=== PATIENT | female | born 1955 | race Caucasian/White ===

== ENCOUNTER → 2017-09-05 | Outpatient (CLI) | payer BC, OTHER ==
--- NOTE | 2017-09-07 10:14 | MAM ---
EXAM DESCRIPTION: 3D Screening BILATERAL : Digital Mammography. CLINICAL HISTORY: 62 years Female SCREENING . No complaints. No family history of breast cancer. Postmenopausal. No HRT. COMPARISON: 2-D digital screening bilateral study 05/29/2015. Report from prior study not available. TECHNIQUE: Bilateral CC and MLO projection full-field images, 3-D tomosynthesis digital mammographic technique. Also bilateral synthesized CC/ MLO full-field images. CAD not utilized. FINDINGS: The breast parenchymal density pattern is: Scattered areas of fibroglandular density. No skin thickening or nipple retraction bilateral axillary lymph nodes. Lateral solitary microcalcifications. No focal, stellate mass or density, focal asymmetry , and no suspicious microcalcifications bilaterally. IMPRESSION: BI-RADS CATEGORY: 2 - BENIGN FINDINGS. FOLLOW UP: Routine digital bilateral screening, one year interval from August 2017. Written communication explaining the IMPRESSION and follow-up, will be mailed to the patient and referring health care provider. According to the [employer], yearly mammograms are recommended starting at age 40 and continuing as long as a woman is in good health. Any breast change noted on a breast self-exam should be reported promptly to the patient's healthcare provider. Breast MRI is recommended for women with an approximately 20-25% or greater lifetime risk of breast cancer, including women with a strong family history of breast or ovarian cancer and women who have been treated for Hodgkin's disease. A negative mammographic report should not delay tissue diagnosis in patients with significant clinical history or physical findings. Extremely dense breast tissue limits the sensitivity of digital mammography. Electronically signed by: Solomon Matthews MD 09/07/2017 10:12 AM PACKAGING MANAGER
== END ==
LOC: MAMMO 08:32
PROVIDERS: ATTEND Nurse Practitioner Family
DX: Z12.31 Encounter for screening mammogram for malignant neoplasm of breast (principal)

== ENCOUNTER → 2018-04-19 | Outpatient (CLI) | payer OTHER ==
--- NOTE | 2018-04-19 13:45 | RAD ---
EXAM DESCRIPTION: Knee,Left three x-ray views CLINICAL HISTORY: 62 years, Female, PAIN IN LEFT KNEE COMPARISON: None TECHNIQUE: Three views of the left knee FINDINGS: A frontal view is submitted. No fracture or dislocation. Bones appear mildly osteopenic. Degenerative narrowing of the medial compartment is noted with prominent medial and lateral joint line spurring. There is spurring of tibial spines. Question small well-corticated loose body in the lateral compartment 5.5 mm. A lateral view and a sunrise patellar view are submitted. Lateral view shows severe endstage degenerative osteoarthrosis with spurring of the inferior patella, patellofemoral joint space narrowing, anterior and posterior distal femoral spurring as well as large osteophyte of the anterior tibial surface. Rim calcified densities in the popliteal region could be articular loose bodies within a Martin's cyst. Question small suprapatellar joint effusion. [place] patellar view shows no dislocation of the patella. Prominent posterior patellar spurring. IMPRESSION: End-stage osteoarthrosis of the left knee. Electronically signed by: Jm García MD 04/19/2018 1:44 PM CDT
== END ==
LOC: YCFC.O 10:21
PROVIDERS: ATTEND Nurse Practitioner Family
DX: Z00.00 Encounter for general adult medical examination without abnormal findings (principal); E78.2 Mixed hyperlipidemia; E11.9 Type 2 diabetes mellitus without complications; I10 Essential (primary) hypertension; M17.12 Unilateral primary osteoarthritis, left knee; M25.562 Pain in left knee

== ENCOUNTER → 2018-05-07 | Outpatient (CLI) | payer OTHER ==
--- NOTE | 2018-05-07 08:34 | RAD ---
EXAM DESCRIPTION: Knee,Right Complete CLINICAL HISTORY: 62 years Female, KNEE PAIN TECHNIQUE: 4 views of the right knee were performed. COMPARISON: None available. FINDINGS: The visualized bones appear well mineralized. No acute fracture or dislocation. Small amount of suprapatellar joint effusion noted. The soft tissues appear grossly unremarkable. Severe tricompartmental osteoarthritic changes, with large osteophytosis and severe medial compartment joint space narrowing with [id number] appearance. IMPRESSION: 1. Severe tricompartment osteoarthritic changes of the right knee with severe medial compartment joint space narrowing, with [id number] appearance. Electronically signed by: Wilmer Lni MD 05/07/2018 8:33 AM CDT
--- NOTE | 2018-05-07 08:37 | RAD ---
EXAM DESCRIPTION: Pelvis CLINICAL HISTORY: 62 years Female, HIP PAIN COMPARISON: None. TECHNIQUE: AP radiograph of the pelvis was performed. FINDINGS: The pelvic ring appears grossly intact on this single AP radiograph. No acute fracture or dislocation. Bilateral sacroiliac joints demonstrate mild osteoarthritic changes. Mild bilateral hip joint osteoarthritis. The visualized lumbo-sacral spine demonstrates moderate degenerative changes. IMPRESSION: Single AP radiograph of the pelvis demonstrates grossly intact pelvic ring. Mild bilateral hip joint osteoarthritis. Electronically signed by: Wilmer Lin MD 05/07/2018 8:35 AM CDT
== END ==
LOC: RAD 07:48
PROVIDERS: ATTEND Orthopaedic Surgery
DX: Z01.818 Encounter for other preprocedural examination (principal); M17.11 Unilateral primary osteoarthritis, right knee; M16.0 Bilateral primary osteoarthritis of hip; M25.561 Pain in right knee; M25.551 Pain in right hip

== ENCOUNTER → 2018-05-09 | Outpatient (CLI) | payer OTHER ==
--- NOTE | 2018-05-09 08:51 | RAD ---
EXAM DESCRIPTION: Chest,2 x-ray Views CLINICAL HISTORY: PREOP COMPARISON: None TECHNIQUE: PA/lateral FINDINGS: There is no acute appearing cardiac or pulmonary abnormality. Heart size is normal with normal pulmonary vascularity. No pleural effusion or pneumothorax. Lungs are clear with no consolidating infiltrate. Lateral view shows intact sternum and spurring in the T-spine. IMPRESSION: No acute process is identified in the chest. Electronically signed by: Jm García MD 05/09/2018 8:49 AM CDT
== END ==
LOC: YCFC.O 08:21
PROVIDERS: ATTEND Nurse Practitioner Family
DX: Z01.818 Encounter for other preprocedural examination (principal)

== ENCOUNTER 2018-05-30 05:29 | Inpatient (IN) | payer OTHER ==
--- NOTE | 2018-05-28 11:07 | HP ---
CHIEF COMPLAINT: Left knee pain. HISTORY OF PRESENT ILLNESS: Ms. Copeland is a 62-year-old female with a history of severe knee pain that is getting progressively worse over several years. She has had no trauma related to this, denies any radiation of pain and denies any neurologic symptoms. She has pain on a daily basis which has been refractory to conservative measures. Because of her ongoing pain, she has requested operative intervention. After discussing the risks, benefits and alternatives to that, the patient has given informed consent. PAST SURGICAL HISTORY: 1. Kidney stone removal. 2. Cholecystectomy. 3. Bilateral knee arthroscopy. MEDICATIONS: 1. Diclofenac. 2. Glyburide. 3. Lisinopril. 4. Metformin. 5. Gabapentin. 6. Lovastatin. ALLERGIES: NO KNOWN DRUG ALLERGIES. CODE STATUS: Full code. IMMUNIZATIONS: Up to date. FAMILY HISTORY: None pertinent to today's complaint. SOCIAL HISTORY: The patient does not drink, smoke or use any illicit drugs. REVIEW OF SYSTEMS: Negative except as indicated in the History of Present Illness. PHYSICAL EXAMINATION: VITAL SIGNS: Blood pressure 176/103. Pulse 94. Height 5'4". Weight 224 pounds. MENTAL STATUS: The patient is awake, alert, and is able to give a good history and participate in the physical. The patient is oriented to person, place and time. SKIN: Normal tone and turgor. HEENT: Normocephalic, atraumatic. Pupils equal, round and reactive. Mucosal membranes are moist. NECK: Normal range of motion. No thyromegaly, no lymphadenopathy. CHEST: Normal respiratory excursion. CARDIAC: Regular rate and rhythm. No murmurs, rubs or gallops. MUSCULOSKELETAL: The bilateral upper extremities show full active range of motion. She has no pain or deformity. Strength is 5/5. The right lower extremity shows crepitus and pain with range of motion of the knee. She has full range of motion of the hip. The knee has no varus/valgus or anterior/ posterior laxity, but she has severe tenderness diffusely. The left knee shows full range of motion of the hip without significant pain. She has intact sensation and it is warm and well perfused. She has no varus/valgus or anterior /posterior laxity. She has crepitus throughout her range of motion with near full extension and flexion is to about 100 degrees this morning. IMAGING: X-rays show severe arthritis. ASSESSMENT: 1. Arthritis. PLAN: Because of her failure of conservative measures, she has requested operative intervention. We have discussed the risks, benefits, and alternatives to that and the patient has given informed consent. #[id number] [facility]
[2018-05-30] MEDS ORDERED: ceFAZolin SODIUM 1 GM VIAL ONE ×4 (05:58→19:52)
[2018-05-30] MEDS ORDERED: SODIUM CHL 0.9% 100ML MINI-BAG 100 ML IVPB ONE ×3 (05:58→19:51)
[2018-05-30] MEDS ORDERED: LACTATED RINGERS 1,000 ML ONE (05:58)
[2018-05-30] MEDS ORDERED: VANCOMYCIN HCL INJ 1,000 MG VIAL IVPB ONE ×3 (05:58→19:52)
[2018-05-30] MEDS ORDERED: SODIUM CHLORIDE 0.9% 100ML 100 ML IVPB ONE (05:59)
[2018-05-30] MEDS ORDERED: TRANEXAMIC ACID 1,000 MG/10 ML VIAL ONE (05:59)
[2018-05-30] MEDS ORDERED: SODIUM CHLORIDE 0.9% 250ML 250 ML ONE ×3 (05:59→19:51)
[2018-05-30] MEDS: TRANEXAMIC ACID 1,000 MG/10 ML VIAL ONE ×2 (06:25→06:40)
[2018-05-30] MEDS ORDERED: MIDAZOLAM INJ 2 MG/2 ML VIAL ONE ×2 (06:32→07:07)
[2018-05-30] MEDS ORDERED: MORPHINE SULF *EPIDURAL* 1 MG/ML VIAL ONE (06:32)
[2018-05-30] MEDS ORDERED: fentaNYL CITRATE INJ 50 MCG/ML AMP ONE (06:32)
[2018-05-30] MEDS ORDERED: ACETAMINOPHEN IV 1000MG 100 ML ONE (06:32)
[2018-05-30] MEDS ORDERED: SODIUM CHLORIDE 0.9% (FLUSH) 10 ML SYG IV PRN (07:18)
[2018-05-30] MEDS ORDERED: MORPHINE SULFATE INJ 10 MG/ML VIAL IM PRN (07:18)
[2018-05-30] MEDS ORDERED: ACETAMINOPHEN 500 MG TAB PO PRN (07:18)
[2018-05-30] MEDS ORDERED: MORPHINE SULFATE INJ 10 MG/ML VIAL IV PRN (07:18)
[2018-05-30] MEDS ORDERED: ALUMINUM & MAGNESIUM HYDROXIDE 30 ML UD PO PRN (07:18)
[2018-05-30] MEDS ORDERED: BENZOCAINE-MENTH LOZ (CEPACOL) 1 EA LOZ MT PRN (07:18)
[2018-05-30] MEDS ORDERED: DEX 5% W/NACL 0.45% 1000ML 1,000 ML IVS PRN (07:18)
[2018-05-30] MEDS ORDERED: MAGNESIUM HYDROXIDE 30 ML UD PO PRN (07:18)
[2018-05-30] MEDS ORDERED: PROMETHAZINE HCL INJ 12.5 MG in SODIUM CHLORIDE 0.9% 50ML 50 ML IVPB PRN (07:18)
[2018-05-30] MEDS ORDERED: ZOLPIDEM TARTRATE 5 MG TAB PO PRN (07:18)
[2018-05-30] MEDS ORDERED: TEMAZEPAM 15 MG CAP PO PRN (07:18)
[2018-05-30] MEDS ORDERED: ACETAMINOPHEN 325 MG TAB PO PRN (07:18)
[2018-05-30] MEDS ORDERED: BISACODYL SUPPOSITORY 10 MG PR PRN (07:18)
[2018-05-30] MEDS ORDERED: PROMETHAZINE HCL INJ 25 MG in SODIUM CHLORIDE 0.9% 50ML 50 ML IVPB PRN (07:18)
[2018-05-30] MEDS ORDERED: TRANEXAMIC ACID INJ 1,000 MG in SODIUM CHLORIDE 0.9% 100ML 100 ML IVPB ONE (07:18)
[2018-05-30] MEDS ORDERED: traMADol HCL 50 MG TAB PO PRN (07:18)
[2018-05-30] MEDS ORDERED: NALOXONE HCL INJ 0.4 MG/ML VIAL IV PRN (07:18)
[2018-05-30] MEDS ORDERED: MORPHINE PCA 1 MG/ML 100 ML BAG IVPB SCH (07:30)
[2018-05-30] MEDS: ceFAZolin SODIUM 1 GM VIAL ONE ×2 (08:07→08:58)
[2018-05-30] MEDS: VANCOMYCIN HCL INJ 1,000 MG VIAL IVPB ONE ×2 (08:07→08:58)
[2018-05-30] MEDS: BUPIVACAINE LIPOSOME 13.3 MG/ML VIAL INJ ONE ×2 (08:08→08:57)
[2018-05-30] MEDS: BUPIVACAINE 0.5% 30 ML VIAL INJ ONE ×2 (08:08→08:57)
[2018-05-30] MEDS ORDERED: BUPIVACAINE LIPOSOME 13.3 MG/ML VIAL INJ ONE (08:24)
[2018-05-30] MEDS ORDERED: ELECTROLYTE-A 1,000 ML IVS ONE (08:36)
[2018-05-30] MEDS ORDERED: LIDOCAINE 1% 10 ML VIAL INJ ONE (10:00)
[2018-05-30] MEDS ORDERED: DEXAMETHASONE INJ 10 MG/ML VIAL IV ONE (10:00)
[2018-05-30] MEDS ORDERED: METOCLOPRAMIDE HCL INJ 10 MG/2 ML VIAL IV ONE (10:00)
[2018-05-30] MEDS ORDERED: PROPOFOL 200 MG/20 ML VIAL IV ONE (10:00)
[2018-05-30] MEDS ORDERED: ePHEDrine SULF 50 MG/ML IV ONE (10:00)
[2018-05-30] MEDS ORDERED: raNITIdine HCL INJ 25 MG/ML VIAL IV ONE (10:00)
[2018-05-30] MEDS: ONDANSETRON INJ 4 MG/2 ML VIAL IV PRN (10:10)
[2018-05-30] MEDS ORDERED: SCOPOLAMINE PATCH 1.5MG 1 EA TD ONE (10:36)
[2018-05-30] MEDS: CELECOXIB 100 MG CAP PO SCH (12:17)
[2018-05-30] MEDS: IV SET AND CAP CHANGE INJ INJ SCH (12:18)
[2018-05-30] MEDS: MAGNESIUM OXIDE 400 MG TAB PO SCH (12:19)
[2018-05-30] MEDS: ceFAZolin SODIUM 2 GM in SODIUM CHL 0.9% 100ML MINI-BAG 100 ML IVPB SCH ×2 (12:37→20:27)
--- NOTE | 2018-05-30 13:03 | RAD ---
EXAM DESCRIPTION: Knee,Left 2 or More Views CLINICAL HISTORY: 62 yearsFemale, TKA COMPARISON: None. IMPRESSION: There are operative changes of a left total knee arthroplasty. Components appear in excellent alignment, with no complicating features. There is postoperative gas in the soft tissues. Electronically signed by: Esteban Baxter MD 05/30/2018 1:01 PM CDT
[2018-05-30] MEDS ORDERED: ceFAZolin SODIUM 2 GRAMS PREMI 2 GM in PREMIX BAG 1 BAG IVPB SCH (16:00)
--- NOTE | 2018-05-30 16:10 | PN ---
DATE: 05/30/18 SUBJECTIVE: She is doing well. She has no pain. OBJECTIVE: She is afebrile. Vital signs are stable. Dressing is clean, dry and intact. ASSESSMENT: 1. Status post total knee arthroplasty. PLAN: The plan at this point is to begin CPM today and she will begin weightbearing as tolerated tomorrow. #[id number] [facility]
--- NOTE | 2018-05-30 16:35 | OP ---
DATE OF PROCEDURE: 05/30/18 PREOPERATIVE DIAGNOSIS: 1. Osteoarthritis of the left knee. POSTOPERATIVE DIAGNOSIS: 1. Osteoarthritis of the left knee. PROCEDURE: 1. Left total knee arthroplasty. SURGEON: Joselo Uriostegui M.D. ALTERATION TAILOR APPRENTICE: Solomon Armando CST, SA-C ANESTHESIA: General anesthesia. COMPLICATIONS: None. FINDINGS: Severe arthritis with varus deformity. INDICATION FOR PROCEDURE: Ms. Copeland has a history of severe pain associated with arthritis. The arthritis has been refractory to conservative measures. Because of the refractory nature of it she has requested operative intervention. After discussing the risks, benefits, and alternatives to operative intervention, she has given informed consent for total knee arthroplasty. PROCEDURE: The patient was brought to the Operating Room and placed in supine position. General anesthesia was induced and the patient's leg was sterilely prepped and draped. Following prepping and draping, the distal femur was exposed and using an intramedullary guide, the distal femoral cut was made. The appropriate sized cutting block was measured, pinned into place, and the anterior, posterior, and chamfer cuts were made. The ACL was transected and the tibia was subluxed. Both the medial and lateral menisci were removed. An intramedullary guide was used to make the proximal tibial cut. The appropriate sized base plate was placed and a trial polyethylene was placed. The trial femur was placed, the knee was reduced, and the knee was taken through a range of motion. The knee was stable in anterior, posterior, varus and valgus stress. The patella tracked anatomically without evidence of subluxation or dislocation. After trialing, the trial components were removed and the bony surfaces were thoroughly irrigated with saline. Following irrigation, the surfaces were dried and the final components were cemented into place. The excess cement was removed and the remaining cement was allowed to cure. The knee was again taken through a range of motion to confirm stability. The wound was then irrigated with saline and closure was performed using PDS to approximate the arthrotomy followed by closure of the subcutaneous tissues with a combination of running and interrupted Monocryl sutures. Sterile dressing was placed. The patient was awoken from anesthesia and taken to Recovery. POSTOPERATIVE INSTRUCTIONS: She will be weightbearing as tolerated on postoperative day 1. COMPONENTS: [employer] triathlon knee, size 3 femur, size 3 tibia, 11 mm insert. #[id number] [facility]
[2018-05-30] MEDS ORDERED: DEXTROSE 50% 25 GM/50 ML SYG IV PRN (17:12)
[2018-05-30] MEDS ORDERED: GLUCAGON INJ 1 MG VIAL SUBCU PRN (17:12)
[2018-05-30] MEDS: VANCOMYCIN HCL INJ 1,000 MG in SODIUM CHLORIDE 0.9% 250ML 250 ML IVPB SCH (17:38)
--- NOTE | 2018-05-30 18:33 | CONS ---
DATE OF CONSULTATION: 05/30/18 SUPERVISING PHYSICIAN: Junior Cervantes M.D. CHIEF COMPLAINT: Left knee pain. HISTORY OF PRESENT ILLNESS: This is a 62 year-old female patient who has a history of severe knee pain that has progressively worsened over several years. There is no trauma related to the pain. She has tried conservative measures but there has been no relief of her pain. Due to the ongoing pain she has requested operative intervention per Dr. Joselo Uriostegui, orthopedic surgeon for a left total knee arthroplasty. She had no problems intraoperatively today. I am seeing her postoperatively in the Medical/Surgical floor of the hospital. Her only complaints postoperatively are that she has a vaginal yeast-like itching and she would like something for that. PAST MEDICAL HISTORY: 1. Diabetes mellitus type 2. 2. Hypertension. 3. Diabetic neuropathy. 4. Hyperlipidemia. PAST SURGICAL HISTORY: 1. Kidney stone removal. 2. Cholecystectomy. 3. Bilateral knee arthroscopy. HOME MEDICATIONS: 1. Diclofenac. 2. Glyburide. 3. Lisinopril. 4. Metformin. 5. Gabapentin. 6. Lovastatin. ALLERGIES: NO KNOWN DRUG ALLERGIES. CODE STATUS: FULL CODE. FAMILY HISTORY: Noncontributory. SOCIAL HISTORY: She denies any tobacco, ETOH or illicit drug use. REVIEW OF SYSTEMS: Negative except as per History of Present Illness. PHYSICAL EXAMINATION: VITAL SIGNS: She is afebrile, heart rate 79, blood pressure 140/84, respiratory rate 18, O2 sat 95% on room air. GENERAL: This is a 62 year-old female patient who is lying in her hospital bed. She is in no acute distress. HEENT: Normocephalic and atraumatic. Pupils are equal and reactive. Oropharynx is clear. NECK: Supple without mass. RESPIRATORY: Essentially clear to auscultation bilaterally. HEART: Regular rate and rhythm. GASTROINTESTINAL: Abdomen is soft, nondistended, non-tender. Bowel sounds are positive. EXTREMITIES: She has an Iceman in place to her left knee. Bilateral pedal pulses are palpable at +2. NEUROLOGIC: She is awake, alert and oriented times three. LABORATORY: Glucose 163. All other labs and films have been reviewed via the EMR. IMPRESSION: 1. Osteoarthritis of the left knee status post left total knee arthroplasty per Dr. Joselo Uriostegui, orthopedic surgeon. Postoperative day #0. 2. Diabetes mellitus type 2. 3. Hypertension, stable. 4. Diabetic neuropathy. 5. Hyperlipidemia, stable. PLAN: We will continue present supportive care. Orthopedic issues will be per Dr. Joselo Uriostegui, orthopedic surgeon. I have restarted her home medications with the exception of her Diclofenac. She will begin her physical therapy for strengthening and conditioning tomorrow. I have also started her on blood sugars after meals and at bedtime with sliding scale insulin coverage. I have also ordered some Monistat cream to be used at night in her vaginal area. We will continue to monitor her closely and follow as needed. Dr. Cervantes is the collaborating physician available for consultation. #[id number] [facility]
[2018-05-30] MEDS ORDERED: ENOXAPARIN SODIUM 30 MG/0.3 ML SYG SUBCU ONE (20:46)
[2018-05-30] MEDS ORDERED: NON-FORMULARY MEDICATION 1 EA MIS (Lovastatin [Lovastatin] 20 MG) PO SCH (21:00)
[2018-05-30] MEDS: INSULIN LISPRO 100 UNITS/ML PEN SUBCU SCH (21:43)
[2018-05-30] MEDS: GABAPENTIN 300 MG CAP PO SCH (21:45)
[2018-05-30] MEDS: DOCUSATE CALCIUM 240 MG CAP PO SCH (21:45)
[2018-05-30] MEDS: MICONAZOLE NITRATE 2 % 45 GM TUBE VAG SCH (21:45)
[2018-05-30] MEDS: ENOXAPARIN SODIUM 30 MG/0.3 ML SYG SUBCU SCH (22:43)
[2018-05-31] MEDS ORDERED: ceFAZolin SODIUM 1 GM VIAL ONE (03:28)
[2018-05-31] MEDS ORDERED: SODIUM CHL 0.9% 100ML MINI-BAG 100 ML IVPB ONE (03:28)
[2018-05-31] MEDS: ceFAZolin SODIUM 2 GM in SODIUM CHL 0.9% 100ML MINI-BAG 100 ML IVPB SCH (03:40)
[2018-05-31] MEDS: ONDANSETRON INJ 4 MG/2 ML VIAL IV PRN ×3 (04:15→21:56)
[2018-05-31] MEDS: VANCOMYCIN HCL INJ 1,000 MG in SODIUM CHLORIDE 0.9% 250ML 250 ML IVPB SCH (05:41)
[2018-05-31] MEDS ORDERED: SODIUM CHLORIDE 0.9% 1000ML 1,000 ML IVS PRN (07:48)
[2018-05-31] MEDS: CELECOXIB 100 MG CAP PO SCH (07:53)
[2018-05-31] MEDS: INSULIN LISPRO 100 UNITS/ML PEN SUBCU SCH ×4 (07:54→23:07)
[2018-05-31] MEDS: metFORMIN HCL 500 MG TAB PO SCH ×2 (09:47→17:02)
[2018-05-31] MEDS: GABAPENTIN 300 MG CAP PO SCH ×3 (09:49→20:52)
[2018-05-31] MEDS: MAGNESIUM OXIDE 400 MG TAB PO SCH (09:50)
[2018-05-31] MEDS: glyBURIDE 5 MG TAB PO SCH ×2 (09:50→17:02)
[2018-05-31] MEDS: LISINOPRIL 10 MG TAB PO SCH (09:50)
[2018-05-31] MEDS ORDERED: diphenhydrAMINE HCL 50 MG/ML VIAL IV PRN (10:30)
--- NOTE | 2018-05-31 11:00 | PN ---
SUPERVISING PHYSICIAN: Junior Cervantes MD DATE: 05/31/18 SUBJECTIVE: The patient is sitting up in a chair in a room. She has no complaints of shortness of breath, nausea, vomiting, diarrhea or chest pain. She feels like her physical therapy went well this morning. She does complain of some itching on her neck as well as her arms and has asked for some Benadryl cream. Otherwise, no complaints. OBJECTIVE: VITAL SIGNS: Afebrile. Heart rate 88. Blood pressure 147/71. Respiratory rate 18. O2 saturation 93% on 2 liters nasal cannula. RESPIRATORY: Essentially clear to auscultation bilaterally. CARDIAC: Regular rate and rhythm. GASTROINTESTINAL: Abdomen is soft, nondistended, nontender. Bowel sounds are positive. EXTREMITIES: Bilateral pedal pulses are palpable +2. Dressing to her left knee is dry and intact. Minimal swelling around the knee. No erythema. NEUROLOGIC: Awake, alert and oriented times three. LABORATORY: Hemoglobin 12.3, hematocrit 36. Blood sugars have run between 145 and 197. All other labs and films have been reviewed via the EMR. ASSESSMENT: 1. Osteoarthritis of the left knee status post left total knee arthroplasty per Dr. Joselo Uriostegui, orthopedic surgeon, postoperative day #1. 2. Diabetes mellitus, type 2, well controlled. 3. Hypertension, stable. 4. Diabetic neuropathy. 5. Hyperlipidemia, stable. PLAN: We will continue present supportive care. Orthopedic issues will be per Dr. Joselo Uriostegui, orthopedic surgeon. She will continue with her physical therapy for strengthening and conditioning. Hopefully on discharge she will go to [facility]. I have ordered her topical Benadryl for itching as well as some IV Benadryl. I have encouraged good pulmonary hygiene. We will continue to monitor the patient closely and follow as needed. Dr. Cervantes is the collaborating physician and available for consultation. #[id number] [facility]
[2018-05-31] MEDS: ENOXAPARIN SODIUM 30 MG/0.3 ML SYG SUBCU SCH ×2 (11:47→23:06)
[2018-05-31] MEDS: diphenhydrAMINE 30 GM TUBE TOP SCH ×2 (11:47→20:51)
--- NOTE | 2018-05-31 13:33 | PN ---
DATE: 05/31/18 SUBJECTIVE: Ms. Copeland is up to a chair, eating and is not having significant pain. It seems to be well controlled. OBJECTIVE: Afebrile. Vital signs are stable. Dressing is clean, dry and intact. ASSESSMENT: Status post total knee arthroplasty. PLAN: The plan is to continue with her weightbearing as tolerated. #[id number] [facility]
[2018-05-31] MEDS: CYCLOBENZAPRINE HCL 10 MG TAB PO PRN ×2 (15:16→23:06)
[2018-05-31] MEDS: MICONAZOLE NITRATE 2 % 45 GM TUBE VAG SCH (20:52)
[2018-05-31] MEDS: DOCUSATE CALCIUM 240 MG CAP PO SCH (20:52)
[2018-05-31] MEDS: SIMVASTATIN 10 MG TAB PO SCH (20:52)
[2018-05-31] MEDS: HYDROcodone 5MG/APAP 325MG 1 EA TAB PO PRN (22:10)
[2018-06-01] MEDS: HYDROcodone 5MG/APAP 325MG 1 EA TAB PO PRN ×4 (05:51→20:48)
[2018-06-01] MEDS: INSULIN LISPRO 100 UNITS/ML PEN SUBCU SCH ×4 (07:19→22:41)
[2018-06-01] MEDS: glyBURIDE 5 MG TAB PO SCH ×2 (07:37→17:16)
[2018-06-01] MEDS: CYCLOBENZAPRINE HCL 10 MG TAB PO PRN ×2 (07:38→20:48)
[2018-06-01] MEDS: CELECOXIB 100 MG CAP PO SCH (07:38)
[2018-06-01] MEDS: metFORMIN HCL 500 MG TAB PO SCH ×2 (07:38→17:16)
[2018-06-01] MEDS: diphenhydrAMINE 30 GM TUBE TOP SCH ×2 (08:46→20:42)
[2018-06-01] MEDS: MAGNESIUM OXIDE 400 MG TAB PO SCH (08:46)
[2018-06-01] MEDS: LISINOPRIL 10 MG TAB PO SCH (08:47)
[2018-06-01] MEDS: GABAPENTIN 300 MG CAP PO SCH ×3 (08:47→20:41)
[2018-06-01] MEDS: SODIUM CHLORIDE 0.9% (FLUSH) 10 ML SYG IV SCH ×2 (08:48→20:41)
[2018-06-01] MEDS: ENOXAPARIN SODIUM 30 MG/0.3 ML SYG SUBCU SCH ×2 (10:46→22:56)
--- NOTE | 2018-06-01 13:14 | PN ---
DATE: 06/01/18 SUBJECTIVE: Ms. Copeland is doing well. She is on her CPM. OBJECTIVE: Afebrile. Vital signs stable. Wound is clean. There are no signs or symptoms of infection. ASSESSMENT: Status post total knee arthroplasty. PLAN: The plan at this point is for her to continue with her physical therapy and will likely be discharged tomorrow. #[id number] [facility]
--- NOTE | 2018-06-01 13:35 | PN ---
SUPERVISING PHYSICIAN: Junior Cervantes MD DATE: 06/01/18 SUBJECTIVE: The patient is sitting in a chair, getting ready to eat lunch. She notes her pain has been controlled. She is no longer having any significant itching since using the Benadryl cream. Otherwise, there are no other complaints. OBJECTIVE: VITAL SIGNS: Afebrile. Temperature 98.2. Pulse 99. Blood pressure 158/84. Respiratory rate 18. Saturation 94% on room air at rest. I&Os show positive balance of 1100 with 1975 in, 875 out. Weight 99.1 kg. GENERAL: The patient is resting comfortably in no acute distress. She is alert. CHEST: Lungs clear to auscultation bilaterally. HEART: Regular rate and rhythm. ABDOMEN: Soft, nontender. Positive bowel sounds. EXTREMITIES: There is a surgical dressing overlying the left knee which is clean and dry. No signs of infection. There is some minimal erythema on the medial aspect. Distal pulses are strong. Capillary refill is brisk. NEUROLOGIC: Alert and oriented times three. LABORATORY: Blood sugar has been well controlled between 88 and 130. ASSESSMENT: 1. Postoperative day #2 status post left total knee arthroplasty for extensive arthritis having failed to respond to outpatient plan with surgery performed by Dr. Joselo Uriostegui, orthopedic surgeon. 2. Diabetes mellitus, type 2, well controlled. 3. Hypertension, stable. 4. Diabetic neuropathy. 5. Hyperlipidemia. PLAN: We will continue to follow the patient as she progresses through her physical therapy and strengthening efforts. On discharge, the [facility] with anticipation of discharging either tomorrow or Monday. We will continue to encourage good pulmonary hygiene. Until discharge, we will continue to monitor the patient closely and treat as needed. #[id number] [facility]
[2018-06-01] MEDS: SIMVASTATIN 10 MG TAB PO SCH (20:41)
[2018-06-01] MEDS: MICONAZOLE NITRATE 2 % 45 GM TUBE VAG SCH (20:41)
[2018-06-01] MEDS: DOCUSATE CALCIUM 240 MG CAP PO SCH (20:41)
[2018-06-02] MEDS: HYDROcodone 5MG/APAP 325MG 1 EA TAB PO PRN ×5 (02:13→20:20)
[2018-06-02] MEDS: CYCLOBENZAPRINE HCL 10 MG TAB PO PRN ×2 (04:44→15:53)
[2018-06-02] MEDS: IV SET AND CAP CHANGE INJ INJ SCH (07:30)
[2018-06-02] MEDS: INSULIN LISPRO 100 UNITS/ML PEN SUBCU SCH ×4 (07:38→21:00)
[2018-06-02] MEDS: CELECOXIB 100 MG CAP PO SCH (08:07)
[2018-06-02] MEDS: glyBURIDE 5 MG TAB PO SCH ×2 (08:07→17:20)
[2018-06-02] MEDS: metFORMIN HCL 500 MG TAB PO SCH ×2 (08:07→17:20)
[2018-06-02] MEDS: GABAPENTIN 300 MG CAP PO SCH ×3 (09:58→20:21)
[2018-06-02] MEDS: MAGNESIUM OXIDE 400 MG TAB PO SCH (09:58)
[2018-06-02] MEDS: SODIUM CHLORIDE 0.9% (FLUSH) 10 ML SYG IV SCH ×2 (09:58→22:37)
[2018-06-02] MEDS: LISINOPRIL 10 MG TAB PO SCH (09:58)
[2018-06-02] MEDS: diphenhydrAMINE 30 GM TUBE TOP SCH ×2 (10:00→20:19)
[2018-06-02] MEDS: ENOXAPARIN SODIUM 30 MG/0.3 ML SYG SUBCU SCH ×2 (11:50→23:04)
--- NOTE | 2018-06-02 14:58 | PN ---
DATE: 06/02/18 SUPERVISING PHYSICIAN: Junior Cervantes M.D. SUBJECTIVE: The patient is working with Physical Therapy. She has good pain control. She is doing well with physical therapy but feels like she is not quite strong enough and safe enough to discharge, and is wanting to continue with physical therapy for another 24 hours. OBJECTIVE: VITAL SIGNS: She remains afebrile, temperature 98.6, pulse 106, blood pressure showing some elevation at 178/92, respirations 18, satting 93% on room air. I's and O's show a positive balance of 1100 with 1975 in, 875 out. She has had 1 bowel movement. Weight is 99.1 kg. GENERAL: The patient is very pleasant. She appears to be in no distress, working with Physical Therapy. CHEST: Lungs are clear to auscultation. HEART: Regular rate and rhythm. ABDOMEN: Soft, non-tender. Positive bowel sounds. EXTREMITIES: Surgical dressing remains in place over the left knee. It is clean and dry. Pulses distally are strong. Capillary refill is brisk. NEUROLOGIC: She is alert and oriented times three. LABORATORY: Blood sugars remain well controlled between 108 and 142. ASSESSMENT: 1. Postoperative day #2 status post left knee arthroplasty for extensive arthritis having failed to respond to outpatient treatment plan with surgery performed by Dr. Joselo Uriostegui, orthopedic surgeon. 2. Diabetes mellitus, type 2, well controlled. 3. Hypertension, stable. 4. Diabetic neuropathy. 5. Hyperlipidemia. PLAN: Will continue an additional day of physical therapy to ensure the patients is strong and safe to go home. On discharge, she plans to [facility] and hopefully be able to discharge Monday. We still continue to encourage pulmonary hygiene. Will monitor her blood pressures as they have been showing some elevation. Until discharge, will continue to monitor and treat as needed. #[id number] [facility]
[2018-06-02] MEDS: SIMVASTATIN 10 MG TAB PO SCH (20:20)
[2018-06-02] MEDS: DOCUSATE CALCIUM 240 MG CAP PO SCH (20:21)
[2018-06-02] MEDS: MICONAZOLE NITRATE 2 % 45 GM TUBE VAG SCH (21:00)
[2018-06-02] MEDS ORDERED: BISACODYL SUPPOSITORY 10 MG PR ONE (21:00)
[2018-06-02] MEDS ORDERED: MAGNESIUM HYDROXIDE 30 ML UD PO ONE (21:00)
[2018-06-03] MEDS: HYDROcodone 5MG/APAP 325MG 1 EA TAB PO PRN ×2 (00:54→05:18)
[2018-06-03] MEDS: glyBURIDE 5 MG TAB PO SCH (07:48)
[2018-06-03] MEDS: CELECOXIB 100 MG CAP PO SCH (07:48)
[2018-06-03] MEDS: metFORMIN HCL 500 MG TAB PO SCH (07:48)
[2018-06-03] MEDS: LISINOPRIL 10 MG TAB PO SCH (08:45)
[2018-06-03] MEDS: MAGNESIUM OXIDE 400 MG TAB PO SCH (08:46)
[2018-06-03] MEDS: SODIUM CHLORIDE 0.9% (FLUSH) 10 ML SYG IV SCH (08:46)
[2018-06-03] MEDS: GABAPENTIN 300 MG CAP PO SCH (08:46)
[2018-06-03] MEDS: ENOXAPARIN SODIUM 30 MG/0.3 ML SYG SUBCU SCH (11:53)
[2018-06-03] MEDS: diphenhydrAMINE 30 GM TUBE TOP SCH (14:45)
[2018-06-03] MEDS: INSULIN LISPRO 100 UNITS/ML PEN SUBCU SCH (14:46)
[2018-06-03 16:09] VITALS: BP 128/82; TEMP 98.1; O2SAT 98
--- NOTE | 2018-06-03 21:10 | DS ---
SUPERVISING PHYSICIAN: Junior Cervantes M.D. ADMISSION DIAGNOSIS: 1. Osteoarthritis of the left knee having failed to respond to outpatient treatment measures requiring elective left total knee arthroplasty that was performed by Dr. Joselo Uriostegui. 2. Diabetes mellitus type 2. 3. Hypertension, stable. 4. Diabetic neuropathies. 5. Hyperlipidemia. DISCHARGE DIAGNOSIS: 1. Postoperative day #3 for elective total left knee arthroplasty due to extensive arthritis and having failed to respond to outpatient measures for treatment with surgery performed by orthopedic surgeon, Dr. Joselo Uriostegui. 2. Diabetes mellitus, type 2, showing to be controlled. 3. Hypertension, stable. 4. Diabetic neuropathy. 5. Hyperlipidemia. REASON FOR HOSPITALIZATION: Ms. Copeland is a 62 year-old female patient that was admitted on 05/30/18 for elective total left knee arthroplasty. She has a longstanding history of severe knee pain that had worsened over several years. She denied any trauma related to the pain. She had tried multiple efforts at conservative treatment measures but had failed to receive any relief. Due to the ongoing pain, she requested operative intervention. The patient was seen postoperatively. She had no complications intraoperatively and she was in stable condition at time of admission. She did have a vaginal yeast-like itching that was treated with Monistat at that time. LABORATORY: Postoperative H&H 12.3 and 36.0 respectively. Blood sugars were between 99 and 146. No additional radiographic studies. CONSULTATION: Hospitalist services. Please see that note for full details. PROCEDURES: Total left knee arthroplasty performed by Dr. Joselo Uriostegui. Please see his Operative Notes for full details. HOSPITAL COURSE: Ms. Copeland was admitted on 05/30/18 for elective total left knee arthroplasty. She had no intraoperative complications and was followed postoperatively. She progressed well with her physical therapy and was felt on the day of discharge able to continue [facility]. Multiple attempts had been made to secure home health for the patient, but her insurance would not allow home health coverage. PHYSICAL EXAMINATION: GENERAL: The patient was seen and examined. VITAL SIGNS: On discharge, temperature 98.0, pulse 88, blood pressure 126/74, respirations 16, satting 89% on room air. CHEST: Lungs were clear to auscultation. HEART: Regular rate and rhythm. ABDOMEN: Soft, non-tender. Positive bowel sounds. EXTREMITIES: Left knee had a dressing in place that was clean and dry with no signs of infection. Distally pulses were strong, capillary refill is brisk. NEUROLOGIC: She is alert and oriented times three. PLAN: Ms. Copeland was discharged on 06/03/18 with instructions to followup with Dr. Uriostegui as scheduled. She was to continue with physical therapy rehabilitation efforts [facility] the [facility] and to call the center on Monday at 9:00 to schedule followup appointment. Wound care was as per Dr. Uriostegui's wound care management which was provided in printed form. She could shower but no tub baths. Activity is to increase as tolerated per Physical Therapy and to utilize a walker. Diet was diabetic diet as tolerated. Medications at discharge included: 1. [place] 5/325, prescription written by Dr. Uriostegui. 2. Flexeril 10 mg every 8 hours as needed for muscle spasms. 3. Continued Monistat cream for vaginal infection to completion. 4. Xarelto 10 mg daily, #8. No refills. All other medications prior to admission were continued. DISPOSITION: The patient was discharged home under the care of family members. Condition on discharge was stable and improved. #[id number] [facility]
== END 2018-06-03 14:00 | disposition home or self-care (01) | DRG 470 ==
LOC: AMB 05:29 → MS 11:25
PROVIDERS: ADMIT Orthopaedic Surgery; ATTEND Nurse Practitioner Family
PROC: 0SRD0J9 Replacement of Left Knee Joint with Synthetic Substitute, Cemented, Open Approach (ICD-10-PCS; principal; 2018-05-30 07:20)
DX: M17.12 Unilateral primary osteoarthritis, left knee (principal); Z87.442 Personal history of urinary calculi; E11.40 Type 2 diabetes mellitus with diabetic neuropathy, unspecified; I10 Essential (primary) hypertension; E78.5 Hyperlipidemia, unspecified

== ENCOUNTER → 2018-08-27 | Outpatient (CLI) | payer OTHER | LOC: YCFC.O 11:28 | PROVIDERS: ATTEND Nurse Practitioner Family | DX: Z01.818 Encounter for other preprocedural examination (principal) ==

== ENCOUNTER → 2018-08-28 | Outpatient (CLI) | payer OTHER ==
--- NOTE | 2018-08-28 08:36 | RAD ---
EXAM DESCRIPTION: Chest,2 Views CLINICAL HISTORY: 63 years Female, PREOP COMPARISON: Radiographs of the chest dated 05/09/2018. TECHNIQUE: PA and lateral radiographs of the chest were obtained. FINDINGS: Trachea is midline.The cardiomediastinal silhouette is normal in size. The pulmonary vasculature is within normal limits.The lungs are clear with no acute consolidation.No evidence of pleural effusions.No evidence of pneumothorax. IMPRESSION: No acute cardiopulmonary process. Electronically signed by: Holly Parry MD 08/28/2018 8:35 AM [facility]
== END ==
LOC: RAD 07:14
PROVIDERS: ATTEND Nurse Practitioner Family
DX: Z01.818 Encounter for other preprocedural examination (principal)

== ENCOUNTER 2018-09-26 05:32 | Inpatient (IN) | payer OTHER ==
--- NOTE | 2018-09-21 08:41 | HP ---
CHIEF COMPLAINT: Right knee pain. HISTORY OF PRESENT ILLNESS: Ms. Copeland is a 63-year-old female with a history of severe knee pain. She has had left total knee arthroplasty and has successfully recovered from that. She is requesting right total knee arthroplasty secondary to failure of conservative measures. After discussing the risks, benefits and alternatives to that, she has given informed consent. PAST SURGICAL HISTORY: 1. Kidney stone removal. 2. Cholecystectomy. 3. Bilateral knee arthroscopy. 4. Total knee arthroplasty. MEDICATIONS: 1. Diclofenac. 2. Glyburide. 3. Lisinopril. 4. Metformin. 5. Gabapentin. 6. Lovastatin. ALLERGIES: NO KNOWN DRUG ALLERGIES. FAMILY HISTORY: None pertinent to today's complaint. SOCIAL HISTORY: The patient does not drink, smoke or use any illicit drugs. REVIEW OF SYSTEMS: Negative except as indicated in the History of Present Illness. PHYSICAL EXAMINATION: VITAL SIGNS: Blood pressure 165/99. Pulse 85. Height 5'4". Weight 212 pounds. MENTAL STATUS: The patient is awake, alert, and is able to give a good history and participate in the physical. The patient is oriented to person, place and time. SKIN: Normal tone and turgor. HEENT: Normocephalic, atraumatic. Pupils equal, round and reactive. Mucosal membranes are moist. NECK: Normal range of motion. No thyromegaly, no lymphadenopathy. CHEST: Normal respiratory excursion. CARDIAC: Regular rate and rhythm. No murmurs, rubs or gallops. MUSCULOSKELETAL: She is very tender to palpation diffusely about the knee. She has intact sensation throughout. She does have slight varus overall malalignment. She has no AP laxity, but a little bit of laxity in varus testing. She has pain with patellar mobilization. Bilateral upper extremities show full active range of motion without pain. She has intact sensation in the extremities and they are warm and well perfused. She has full extension to flexion of about 105 degrees today. She has crepitus throughout the entire range of motion. She has left knee with a well-healed wound anteriorly. She has intact sensation. She has full extension and no significant discomfort with palpation. There is no malalignment or laxity. Both hips show full range of motion without pain. IMAGING: X-rays show severe arthritis and varus deformity of the knee. ASSESSMENT: 1. Arthritis. PLAN: The plan at this point is for total knee arthroplasty. We have discussed the risks, benefits, and alternatives to that and the patient has given informed consent. [facility][id number] [facility]
[2018-09-26] MEDS ORDERED: TRANEXAMIC ACID 1,000 MG/10 ML VIAL ONE ×2 (05:53→06:04)
[2018-09-26] MEDS ORDERED: VANCOMYCIN HCL INJ 1,000 MG VIAL IVPB ONE ×2 (05:53→16:21)
[2018-09-26] MEDS ORDERED: SODIUM CHL 0.9% 100ML MINI-BAG 100 ML IVPB ONE (05:53)
[2018-09-26] MEDS ORDERED: LACTATED RINGERS 1,000 ML ONE (05:53)
[2018-09-26] MEDS ORDERED: ceFAZolin SODIUM 1 GM VIAL ONE ×2 (05:53→06:26)
[2018-09-26] MEDS ORDERED: SODIUM CHLORIDE 0.9% 250ML 250 ML ONE ×2 (05:54→16:20)
[2018-09-26] MEDS ORDERED: SODIUM CHLORIDE 0.9% 100ML 100 ML IVPB ONE (05:54)
[2018-09-26] MEDS ORDERED: BUPIVACAINE 0.5% 30 ML VIAL INJ ONE (06:26)
[2018-09-26] MEDS ORDERED: MORPHINE SULFATE *EPIDURAL* 0.5 MG/ML VIAL ONE (06:28)
[2018-09-26] MEDS ORDERED: fentaNYL CITRATE INJ 50 MCG/ML AMP ONE (06:28)
[2018-09-26] MEDS ORDERED: MIDAZOLAM INJ 5 MG/5 ML VIAL ONE (06:28)
[2018-09-26] MEDS ORDERED: SCOPOLAMINE PATCH 1.5MG 1 EA TD ONE (06:37)
[2018-09-26] MEDS ORDERED: METOCLOPRAMIDE HCL INJ 10 MG/2 ML VIAL ONE (07:00)
[2018-09-26] MEDS ORDERED: DEXAMETHASONE INJ 10 MG/ML VIAL ONE (07:00)
[2018-09-26] MEDS ORDERED: raNITIdine HCL INJ 25 MG/ML VIAL ONE (07:00)
[2018-09-26] MEDS ORDERED: LIDOCAINE 1% 10 ML VIAL INJ ONE (07:00)
[2018-09-26] MEDS ORDERED: ePHEDrine SULF 50 MG/ML ONE (07:00)
[2018-09-26] MEDS ORDERED: PROPOFOL 200 MG/20 ML VIAL IV ONE (07:00)
[2018-09-26] MEDS ORDERED: ACETAMINOPHEN IV 1000MG 100 ML ONE (07:32)
[2018-09-26] MEDS: ceFAZolin SODIUM 1 GM VIAL ONE ×2 (08:09→08:53)
[2018-09-26] MEDS: VANCOMYCIN HCL INJ 1,000 MG VIAL IVPB ONE ×2 (08:09→08:53)
[2018-09-26] MEDS: BUPIVACAINE 0.25% W/EPI 50 ML VIAL INJ ONE ×2 (08:09→08:53)
[2018-09-26] MEDS ORDERED: CYCLOBENZAPRINE HCL 10 MG TAB PO PRN (09:08)
[2018-09-26] MEDS ORDERED: ALUMINUM & MAGNESIUM HYDROXIDE 30 ML UD PO PRN (09:08)
[2018-09-26] MEDS ORDERED: ZOLPIDEM TARTRATE 5 MG TAB PO PRN (09:08)
[2018-09-26] MEDS ORDERED: BENZOCAINE-MENTH LOZ (CEPACOL) 1 EA LOZ MT PRN (09:08)
[2018-09-26] MEDS ORDERED: ONDANSETRON INJ 4 MG/2 ML VIAL IV PRN (09:08)
[2018-09-26] MEDS ORDERED: BISACODYL SUPPOSITORY 10 MG PR PRN (09:08)
[2018-09-26] MEDS ORDERED: ACETAMINOPHEN 500 MG TAB PO PRN (09:08)
[2018-09-26] MEDS ORDERED: SODIUM CHLORIDE 0.9% (FLUSH) 10 ML SYG IV PRN (09:08)
[2018-09-26] MEDS ORDERED: MORPHINE SULFATE INJ 10 MG/ML VIAL IM PRN (09:08)
[2018-09-26] MEDS ORDERED: MORPHINE SULFATE INJ 10 MG/ML VIAL IV PRN (09:08)
[2018-09-26] MEDS ORDERED: TRANEXAMIC ACID INJ 1,000 MG in SODIUM CHLORIDE 0.9% 100ML 100 ML IVPB ONE (09:08)
[2018-09-26] MEDS ORDERED: ACETAMINOPHEN 325 MG TAB PO PRN (09:08)
[2018-09-26] MEDS ORDERED: DEX 5% W/NACL 0.45% 1000ML 1,000 ML IVS PRN (09:08)
[2018-09-26] MEDS ORDERED: PROMETHAZINE HCL INJ 12.5 MG in SODIUM CHLORIDE 0.9% 50ML 50 ML IVPB PRN (09:08)
[2018-09-26] MEDS ORDERED: NALOXONE HCL INJ 0.4 MG/ML VIAL IV PRN (09:08)
[2018-09-26] MEDS ORDERED: MAGNESIUM HYDROXIDE 30 ML UD PO PRN (09:08)
[2018-09-26] MEDS ORDERED: PROMETHAZINE HCL INJ 25 MG in SODIUM CHLORIDE 0.9% 50ML 50 ML IVPB PRN (09:08)
[2018-09-26] MEDS ORDERED: TEMAZEPAM 15 MG CAP PO PRN (09:08)
[2018-09-26] MEDS ORDERED: MORPHINE PCA 1 MG/ML 100 ML BAG IVPB SCH (09:30)
[2018-09-26] MEDS ORDERED: DEX 5% W/NACL 0.45% 1000ML 1,000 ML IVS ONE (10:46)
--- NOTE | 2018-09-26 11:10 | RAD ---
EXAM DESCRIPTION: Fluoroscopy Up to 1Hr CLINICAL HISTORY: 63 years Female, RIGHT TKA COMPARISON: None. TECHNIQUE: Fluoroscopy was used in the operative suite for right total knee replacement with a single image retained and a fluoroscopic time reported as one second. A fluoroscopic dose from the C-arm fluoroscopy unit utilized is not available. FINDINGS: Single view demonstrates total knee replacement with a radiopaque metallic femoral and tibial components well applied to the underlying bony matrix. Alignment appears satisfactory on the single AP view obtained IMPRESSION: Right total knee replacement. Electronically signed by: Junior Hermosillo MD 09/26/2018 11:07 AM [facility]
--- NOTE | 2018-09-26 11:13 | RAD ---
EXAM DESCRIPTION: Knee,Right 2 or More Views CLINICAL HISTORY: 63 years, Female, TKA COMPARISON: None TECHNIQUE: Two views right knee FINDINGS: Two views of the right knee demonstrate total knee replacement with metallic femoral and tibial components applied to the underlying bony matrix. This appears to represent a different prosthesis on that noted on the C-arm fluoroscopy. Surgical changes in the anterior soft tissues on the lateral view are evident. No evidence of patellar replacement is noted. IMPRESSION: 1. Right total knee replacement which appears to represent a different prosthesis than that noted on the C-arm fluoroscopic image. 2. Alignment of the prosthesis appears anatomic with what appears to be surgical changes in the anterior soft tissues. Electronically signed by: Junior Hermosillo MD 09/26/2018 11:10 AM INSURANCE CLAIMS CLERK
[2018-09-26] MEDS: diphenhydrAMINE HCL 50 MG/ML VIAL IV PRN ×2 (11:34→16:41)
[2018-09-26] MEDS ORDERED: diphenhydrAMINE HCL 50 MG/ML VIAL IV PRN (11:35)
[2018-09-26] MEDS ORDERED: DEXTROSE 50% 25 GM/50 ML SYG IV PRN (12:12)
[2018-09-26] MEDS ORDERED: GLUCAGON INJ 1 MG VIAL SUBCU PRN (12:12)
[2018-09-26] MEDS ORDERED: ceFAZolin SODIUM 2 GRAMS PREMI 50 ML IVPB ONE ×2 (16:21→23:48)
[2018-09-26] MEDS: metFORMIN HCL 500 MG TAB PO SCH (16:41)
[2018-09-26] MEDS: CELECOXIB 100 MG CAP PO SCH (16:42)
[2018-09-26] MEDS: GABAPENTIN 300 MG CAP PO SCH ×2 (16:42→20:59)
[2018-09-26] MEDS: ceFAZolin SODIUM 2 GRAMS PREMI 2 GM in PREMIX BAG 1 BAG IVPB SCH ×2 (16:42→23:52)
[2018-09-26] MEDS: INSULIN LISPRO 100 UNITS/ML PEN SUBCU SCH ×2 (17:37→20:59)
[2018-09-26] MEDS: VANCOMYCIN HCL INJ 1,000 MG in SODIUM CHLORIDE 0.9% 250ML 250 ML IVPB SCH (17:38)
[2018-09-26] MEDS ORDERED: diphenhydrAMINE HCL 50 MG/ML VIAL IV ONE (19:03)
[2018-09-26] MEDS: IV SET AND CAP CHANGE INJ INJ SCH (19:14)
--- NOTE | 2018-09-26 19:49 | CONS ---
DATE OF CONSULTATION: 09/26/18 SUPERVISING PHYSICIAN: Bjorn Harrison M.D. REASON FOR CONSULTATION: Right total knee arthroplasty. HISTORY OF PRESENT ILLNESS: This is a 63 year-old female patient who has a history of severe knee pain. She had a left total knee arthroplasty recently and successfully recovered from that. She is now requesting her right total knee arthroplasty secondary to failure of conservative measures. She was admitted this morning for surgery performed by Dr. Joselo Uriostegui, orthopedic surgeon. There were no problems intraoperatively and I am seeing the patient in consultation postoperatively on the Medical/Surgical floor. PAST MEDICAL HISTORY: 1. Osteoarthritis. 2. Diabetes mellitus type 2. 3. Hypertension. 4. Diabetic neuropathy. 5. Hyperlipidemia. PAST SURGICAL HISTORY: 1. Kidney stone removal. 2. Cholecystectomy. 3. Recent left total knee arthroplasty. 4. Bilateral knee arthroscoopy. OUTPATIENT MEDICATIONS: 1. Diclofenac. 2. Glyburide. 3. Lisinopril. 4. Metformin. 5. Gabapentin. 6. Lovastatin. ALLERGIES: NO KNOWN DRUG ALLERGIES. SOCIAL HISTORY: She denies any tobacco, ETOH or illicit drug use. REVIEW OF SYSTEMS: Negative except as per History of Present Illness. PHYSICAL EXAMINATION: VITAL SIGNS: Temperature 98.6, heart rate 80, blood pressure 138/83, respiratory rate 16, O2 sat 99% on 2 liters nasal cannula. GENERAL: This is a 63 year-old female patient who is lying in her hospital bed. She is in no acute distress. HEENT: Normocephalic and atraumatic. Pupils are equal and reactive. Oral mucous membranes are moist. Oropharynx is clear. NECK: Supple without mass. RESPIRATORY: Essentially clear to auscultation bilaterally. CHEST: There is equal rise and fall of the chest with inspiration and expiration. CARDIAC: Regular rate and rhythm. No murmurs appreciated. GASTROINTESTINAL: Abdomen is soft, nondistended, non-tender. Bowel sounds are positive. EXTREMITIES: Right knee is in the CPM machine. The dressing is secured with an Rojelio bandage and it is dry and intact. Bilateral pedal pulses are +2. SKIN: Warm and dry. NEUROLOGIC: She is awake, alert and oriented times three. LABORATORY: Blood glucoses have run between 120 and 177. All other labs and films have been reviewed via the EMR. IMPRESSION: 1. Osteoarthritis of bilateral knees status post right total knee arthroplasty performed by Dr. Joselo Uriostegui, orthopedic surgeon. Postoperative day #0. 2 Hypertension. 3. Diabetes mellitus type 2. 4. Hyperlipidemia. 5. Diabetic neuropathy. PLAN: Will restart home medications with the exception of Diclofenac and her Glyburide. Will hold on her Glyburide until she has been eating. She will begin her physical therapy for strengthening and conditioning tomorrow by our Physical Therapy department. Orthopedic issues will be per Dr. Joselo Uriostegui, orthopedic surgeon. I have also started her on blood sugar checks a.c. and h.s. with sliding scale NovoLog insulin as coverage. I have encouraged good pulmonary hygiene. We will continue to monitor closely and follow as needed. #[id number] [facility]
[2018-09-26] MEDS ORDERED: ENOXAPARIN SODIUM 30 MG/0.3 ML SYG SUBCU ONE (20:14)
[2018-09-26] MEDS: DOCUSATE CALCIUM 240 MG CAP PO SCH (20:59)
[2018-09-26] MEDS: SIMVASTATIN 10 MG TAB PO SCH (20:59)
[2018-09-26] MEDS: ENOXAPARIN SODIUM 30 MG/0.3 ML SYG SUBCU SCH (22:47)
[2018-09-27] MEDS ORDERED: VANCOMYCIN HCL INJ 1,000 MG VIAL IVPB ONE (04:19)
[2018-09-27] MEDS ORDERED: SODIUM CHLORIDE 0.9% 250ML 250 ML ONE (04:19)
[2018-09-27] MEDS: VANCOMYCIN HCL INJ 1,000 MG in SODIUM CHLORIDE 0.9% 250ML 250 ML IVPB SCH (05:45)
[2018-09-27] MEDS: HYDROcodone 5MG/APAP 325MG 1 EA TAB PO PRN ×3 (06:45→17:34)
[2018-09-27] MEDS: INSULIN LISPRO 100 UNITS/ML PEN SUBCU SCH ×4 (07:49→20:50)
[2018-09-27] MEDS ORDERED: ceFAZolin SODIUM 2 GRAMS PREMI 50 ML IVPB ONE (07:55)
--- NOTE | 2018-09-27 08:11 | PN ---
DATE: 09/27/18 SUBJECTIVE: Ms. Copeland is doing pretty well today and her pain is well controlled. OBJECTIVE: Afebrile. Vital signs stable. Dressing is clean, dry and intact. ASSESSMENT: Status post total knee arthroplasty. PLAN: The plan at this point is for her to begin weightbearing as tolerated today. #[id number] MTDD
--- NOTE | 2018-09-27 08:12 | PN ---
DATE: 09/26/18 POSTOPERATIVE CHECK SUBJECTIVE: Ms. Copeland is doing well. She has no current pain. OBJECTIVE: Afebrile. Vital signs stable. Dressing is clean, dry and intact. ASSESSMENT: Status post total knee arthroplasty. PLAN: She will begin weightbearing as tolerated on postoperative day 1. #[id number] [facility]TDD
[2018-09-27] MEDS: CELECOXIB 100 MG CAP PO SCH ×2 (08:24→16:16)
[2018-09-27] MEDS: metFORMIN HCL 500 MG TAB PO SCH ×2 (08:24→17:27)
[2018-09-27] MEDS: ceFAZolin SODIUM 2 GRAMS PREMI 2 GM in PREMIX BAG 1 BAG IVPB SCH (08:24)
[2018-09-27] MEDS: LISINOPRIL 10 MG TAB PO SCH ×2 (10:02→10:25)
[2018-09-27] MEDS: GABAPENTIN 300 MG CAP PO SCH ×3 (10:07→20:49)
[2018-09-27] MEDS: MAGNESIUM OXIDE 400 MG TAB PO SCH (10:07)
--- NOTE | 2018-09-27 12:00 | OP ---
DATE OF PROCEDURE: 09/26/18 PREOPERATIVE DIAGNOSIS: 1. Osteoarthritis of the knee. POSTOPERATIVE DIAGNOSIS: 1. Osteoarthritis of the knee. PROCEDURE: 1. Total knee arthroplasty. SURGEON: Joselo Uriostegui MD. NCA CERTIFIED CONCIERGE: Solomon Armando CST, SA-C. ANESTHESIA: General anesthesia. COMPLICATIONS: None. FINDINGS: Severe arthritis of the knee. INDICATION: Ms. Copeland has a long history of severe and worsening knee pain. Because of her ongoing symptoms, she has requested operative intervention. After discussing the risks, benefits and alternatives to that, the patient has given informed consent for total knee arthroplasty. PROCEDURE: The patient was brought to the Operating Room and placed in supine position. General anesthesia was induced and the patient's leg was sterilely prepped and draped. Following prepping and draping, the distal femur was exposed and using an intramedullary guide, the distal femoral cut was made. The appropriate sized cutting block was measured, pinned into place, and the anterior, posterior, and chamfer cuts were made. The ACL was transected and the tibia was subluxed. Both the medial and lateral menisci were removed. An intramedullary guide was used to make the proximal tibial cut. The appropriate sized base plate was placed and a trial polyethylene was placed. The trial femur was placed, the knee was reduced, and the knee was taken through a range of motion. The knee was stable in anterior, posterior, varus and valgus stress. The patella tracked anatomically without evidence of subluxation or dislocation. After trialing, the trial components were removed and the bony surfaces were thoroughly irrigated with saline. Following irrigation, the surfaces were dried and the final components were cemented into place. The excess cement was removed and the remaining cement was allowed to cure. The knee was again taken through a range of motion to confirm stability. The wound was then irrigated with saline and closure was performed using PDS to approximate the arthrotomy followed by closure of the subcutaneous tissues with a combination of running and interrupted Monocryl sutures. Sterile dressing was placed. The patient was awoken from anesthesia and taken to Recovery. POSTOPERATIVE PLAN: The patient will be weight-bearing as tolerated on postoperative day 1. COMPONENTS: Foodem Triathlon knee, size 3 femur, size 3 tibia, 9 mm insert. [facility][id number] [facility]
[2018-09-27] MEDS: ENOXAPARIN SODIUM 30 MG/0.3 ML SYG SUBCU SCH ×2 (12:28→23:01)
--- NOTE | 2018-09-27 20:22 | PN ---
DATE: 09/27/18 SUPERVISING PHYSICIAN: Bjorn Harrison M.D. SUBJECTIVE: The patient is sitting up in her chair in her room. Earlier today she had been itching and we discontinued her CREW LEADER GLUING pump, and she has had no further complaints of itching. She has no complaints of chest pain, shortness of breath, nausea or vomiting, and actually has had minimal pain in her knee since she has gotten up and moving around. OBJECTIVE: VITAL SIGNS: 98.1, heart rate 87, blood pressure 138/73, respiratory rate 18, O2 sat 94% on room air. RESPIRATORY: Essentially clear to auscultation bilaterally. CARDIAC: Regular rate and rhythm. GASTROINTESTINAL: Abdomen is soft, nondistended, non-tender. Bowel sounds are positive. EXTREMITIES: The dressing to her right knee is covered with an Rojelio bandage. It is dry and intact. Bilateral pedal pulses are palpable at +2. NEUROLOGIC: She is awake, alert and oriented times three. LABORATORY: Hemoglobin is 11.6, hematocrit 31.8. All other labs and films have been reviewed via the EMR. ASSESSMENT: 1. Osteoarthritis of bilateral knees status post right total knee arthroplasty performed by Dr. Joselo Uriostegui, orthopedic surgeon. Postoperative day #1. 2 Hypertension, stable on medications. 3. Diabetes mellitus type 2. 4. Hyperlipidemia. 5. Diabetic neuropathy. PLAN: We will continue present supportive care. Orthopedic issues will be per Dr. Joselo Uriostegui, orthopedic surgeon. She will continue with physical therapy for strengthening and conditioning. At this point we plan for discharge on Monday. The plan for now is for her to do outpatient physical therapy at [facility] Physical Therapy Department. Until then will continue to monitor closely and follow as needed. #[id number] [facility]TDD
[2018-09-27] MEDS: DOCUSATE CALCIUM 240 MG CAP PO SCH (20:49)
[2018-09-27] MEDS: SIMVASTATIN 10 MG TAB PO SCH (20:49)
[2018-09-28] MEDS: traMADol HCL 50 MG TAB PO PRN (05:07)
[2018-09-28] MEDS: INSULIN LISPRO 100 UNITS/ML PEN SUBCU SCH ×4 (07:20→21:04)
[2018-09-28] MEDS: metFORMIN HCL 500 MG TAB PO SCH ×3 (07:46→17:10)
[2018-09-28] MEDS: CELECOXIB 100 MG CAP PO SCH ×2 (07:46→17:09)
--- NOTE | 2018-09-28 08:48 | PN ---
DATE: 09/28/18 SUBJECTIVE: Ms. Copeland is doing well. She is up to a chair. OBJECTIVE: Afebrile. Vital signs stable. Wound is clean. There are no signs or symptoms of infection. ASSESSMENT: Status post total knee arthroplasty. PLAN: The plan at this point is for her to continue on with weightbearing as tolerated. We will likely discharge her tomorrow. #[id number] [facility]TDD
[2018-09-28] MEDS: SODIUM CHLORIDE 0.9% (FLUSH) 10 ML SYG IV SCH ×2 (08:56→20:42)
[2018-09-28] MEDS: GABAPENTIN 300 MG CAP PO SCH ×3 (08:56→20:42)
[2018-09-28] MEDS: LISINOPRIL 10 MG TAB PO SCH (08:56)
[2018-09-28] MEDS: MAGNESIUM OXIDE 400 MG TAB PO SCH (08:56)
[2018-09-28] MEDS: HYDROcodone 5MG/APAP 325MG 1 EA TAB PO PRN (09:04)
[2018-09-28] MEDS: ENOXAPARIN SODIUM 30 MG/0.3 ML SYG SUBCU SCH ×2 (10:59→22:42)
--- NOTE | 2018-09-28 17:23 | PN ---
DATE: 09/28/18 SUPERVISING PHYSICIAN: Bjorn Harrison M.D. SUBJECTIVE: The patient is lying in bed. She is asleep. She awakens easily. She is on the CPM machine at this time. She has no complaints of nausea, vomiting, chest pain or shortness of breath. We discussed her discharge plan and if she is unable to get home health to do her therapy at home, she will take [facility] to the physical therapy department at [facility]. OBJECTIVE: VITAL SIGNS: Temperature 98, heart rate 98, blood pressure 126/77, respiratory rate 16, O2 sat 97% on room air. RESPIRATORY: Essentially clear to auscultation bilaterally. CARDIAC: Regular rate and rhythm. GASTROINTESTINAL: Abdomen is soft, nondistended, non-tender. Bowel sounds are positive. EXTREMITIES: She has a dressing to her right knee that is dry and intact. Bilateral pedal pulses are palpable at +2. NEUROLOGIC: She is awake, alert and oriented times three. LABORATORY: Blood sugars have run between 126/ and 174. All other labs and films have been reviewed via the EMR. ASSESSMENT: 1. Osteoarthritis of bilateral knees status post right total knee arthroplasty performed by Dr. Joselo Uriostegui, orthopedic surgeon. Postoperative day #2. 2 Hypertension, stable on medications. 3. Diabetes mellitus type 2. 4. Hyperlipidemia. 5. Diabetic neuropathy. PLAN: We will continue present supportive care. Orthopedic issues will be per Dr. Joselo Uriostegui, orthopedic surgeon. She will continue with physical therapy for strengthening and conditioning. We anticipate discharge tomorrow or the next day. Skylar Maxwell, our social sciences department chair, is working on getting her home health company that will take her insurance so she can have PT at home. She would prefer staying at home as she takes care of her invalid . She also said that if she has to she will [facility]. Will continue to monitor closely and follow as needed. [facility][id number] [facility]
[2018-09-28] MEDS: DOCUSATE CALCIUM 240 MG CAP PO SCH (20:42)
[2018-09-28] MEDS: SIMVASTATIN 10 MG TAB PO SCH (20:42)
[2018-09-29] MEDS: traMADol HCL 50 MG TAB PO PRN (02:14)
[2018-09-29 06:31] VITALS: BP 144/83; TEMP 98.6
[2018-09-29] MEDS: INSULIN LISPRO 100 UNITS/ML PEN SUBCU SCH ×2 (07:22→13:52)
[2018-09-29] MEDS: CELECOXIB 100 MG CAP PO SCH (07:44)
[2018-09-29] MEDS: metFORMIN HCL 500 MG TAB PO SCH (07:44)
[2018-09-29] MEDS: HYDROcodone 5MG/APAP 325MG 1 EA TAB PO PRN (07:50)
[2018-09-29] MEDS: LISINOPRIL 10 MG TAB PO SCH (08:42)
[2018-09-29] MEDS: GABAPENTIN 300 MG CAP PO SCH (08:43)
[2018-09-29] MEDS: MAGNESIUM OXIDE 400 MG TAB PO SCH (08:43)
[2018-09-29] MEDS: SODIUM CHLORIDE 0.9% (FLUSH) 10 ML SYG IV SCH (08:44)
[2018-09-29] MEDS: IV SET AND CAP CHANGE INJ INJ SCH (09:24)
[2018-09-29] MEDS: ENOXAPARIN SODIUM 30 MG/0.3 ML SYG SUBCU SCH (10:42)
[2018-09-29 10:50] VITALS: O2SAT 97
[2018-09-29] MEDS ORDERED: BISACODYL SUPPOSITORY 10 MG PR ONE (21:00)
[2018-09-29] MEDS ORDERED: MAGNESIUM HYDROXIDE 30 ML UD PO ONE (21:00)
--- NOTE | 2018-10-01 08:44 | DS ---
SUPERVISING PHYSICIAN: Bjorn Harrison MD DISCHARGE DIAGNOSIS: 1. Osteoarthritis of bilateral knees status post right total knee arthroplasty performed by Dr. Joselo Uriostegui, orthopedic surgeon. Postoperative day #3. 2 Hypertension, stable on medications. 3. Diabetes mellitus, type 2. 4. Hyperlipidemia. 5. Diabetic neuropathy. HISTORY OF PRESENT ILLNESS: This is a 63-year-old female patient who has a significant history of severe knee pain. She had a left total knee arthroplasty recently and successfully recovered from that. She is now requesting her right total knee arthroplasty secondary to failure of conservative measures. She was admitted to have surgery performed by Dr. Joselo Uriostegui, orthopedic surgeon. There were no problems intraoperatively and was seen in consultation postoperatively on the Medical/Surgical Floor. HOSPITAL COURSE: Her home medications were restarted except for diclofenac and glyburide. Her glyburide was held until she began eating. Her physical therapy for strengthening and conditioning continued on through the next two days and she was also put on sliding scale insulin protocol. Pulmonary hygiene was encouraged. She had no problems during her postoperative period. She did have some itching during her postoperative recovery. She received Benadryl numerous times, but we actually discontinued the CUT OFF SAW OPERATOR PIPE BLANKS pump somewhat early due to her itching and after discontinuance of it, she had no further complaints. She has met her postoperative physical therapy goals and will be discharged home today in stable condition. LABORATORY: Postoperatively, hemoglobin was 11.6 and hematocrit 31.8. DISCHARGE PLAN: The patient will be discharged home in stable condition. She is to start her physical therapy at the [facility] on 10/01/18. She is to resume her previous diet, increase her activity as per physical therapy and is to followup with Dr. Joselo Uriostegui on 10/12/18 at 9:30 AM. In addition to her home medications, she has cyclobenzaprine, Xarelto and hydrocodone. She is to return to the hospital or call Dr. Uriostegui's office for any problems or complications. DISCHARGE MEDICATIONS: 1. Metformin. 2. Lovastatin. 3. Lisinopril. 4. Glyburide. 5. Gabapentin. 6. Diclofenac to be resumed after completion of Xarelto. 7. Cyclobenzaprine. 8. Xarelto. 9. Hydrocodone. #[id number] [facility]
== END 2018-09-29 12:40 | disposition home or self-care (01) | DRG 470 ==
LOC: AMB 05:32 → MS 10:25
PROVIDERS: ADMIT Orthopaedic Surgery; ATTEND Nurse Practitioner Acute Care
PROC: 0SRC0J9 Replacement of Right Knee Joint with Synthetic Substitute, Cemented, Open Approach (ICD-10-PCS; principal; 2018-09-26 07:21)
DX: M17.11 Unilateral primary osteoarthritis, right knee (principal); E11.40 Type 2 diabetes mellitus with diabetic neuropathy, unspecified; I10 Essential (primary) hypertension; E78.5 Hyperlipidemia, unspecified; Z96.652 Presence of left artificial knee joint; Z90.49 Acquired absence of other specified parts of digestive tract; Z79.84 Long term (current) use of oral hypoglycemic drugs; Z79.899 Other long term (current) drug therapy

== ENCOUNTER → 2019-05-30 | Outpatient (CLI) | payer OTHER | LOC: LAB.O 06:59 | PROVIDERS: ATTEND Family Medicine | DX: E11.9 Type 2 diabetes mellitus without complications (principal); E78.2 Mixed hyperlipidemia; I10 Essential (primary) hypertension; E66.9 Obesity, unspecified ==

== ENCOUNTER → 2019-06-12 | Outpatient (CLI) | payer OTHER ==
--- NOTE | 2019-06-14 13:07 | CT ---
Procedure: CT LUNG SCREENING Exam Date: 06/12/2019. Ordering Provider: Denzel Garcia Clinical Indication: PERSONAL HX OF TOBACCO USE This patient meets eligibility criteria for low-dose CT lung cancer screening. Comparison: Chest x-ray August 2018. Technique: Using a multislice scanner, sequential helical axial imaging was obtained in the thorax, 2.5 mm thickness, 2.5 mm separation, from the level of the thoracic inlet through the lung bases without IV contrast. A low dose protocol was utilized for BMI greater than 30: BMI: 31. CTDI: 2.92 mGy. 120. kVp. 45 mA. DLP 115.32 mGy-centimeters. 2D sagittal and coronal reconstructed images, 6.0 mm thickness, were obtained. This exam was performed according to our departmental dose optimization program which includes use of automated exposure control, adjustment of the mA and/or kV according to patient size and/or use of iterative reconstruction technique. Nodule measurements under 10 mm are given as mean value of 3 axes diameters. FINDINGS: Lungs and large airways: Minimal hyperinflation. No abnormal nodules and no masses. No focal infiltrates. Pleura and space: Unremarkable. Mediastinum and gregorio: evaluation limited by low dose technique and lack of IV contrast. Normal size nodes with no dominant soft tissue masses. Heart and great vessels: Atherosclerotic calcifications coronary arteries, proximal brachiocephalic vessels, aortic arch and descending thoracic aorta. Chest wall, lower neck, axillae: Evaluation also limited by same factors as described above. Negative. Upper abdomen: Evaluation limited by low-dose technique. No free fluid or free air in the included peritoneal space. Surgical clips in the gallbladder fossa with no fluid. Atherosclerotic calcifications abdominal aorta. Osseous structures: Evaluation limited by low dose MIP technique. Multiple levels of thoracic spondylosis. Minimal sternal clavicular arthrosis bilaterally. IMPRESSION: No abnormal nodules or masses. No focal infiltrates. [facility] Best Practice Recommendations: please see below for Lung RADS category and FOLLOW-UP.* *Lung RADS category Category 1 - No nodule or definitely benign nodules (probability of malignancy less than 1%). Follow-up: Continue annual screening with Low Dose Chest CT in 12 months. Electronically signed by: Solomon Matthews MD 06/14/2019 1:06 PM [employer]
== END ==
LOC: CT 08:30
PROVIDERS: ATTEND Family Medicine
DX: Z87.891 Personal history of nicotine dependence (principal)

== ENCOUNTER → 2019-09-02 | Outpatient (CLI) | payer OTHER | LOC: LAB.O 09:00 | PROVIDERS: ATTEND Family Medicine | DX: E11.9 Type 2 diabetes mellitus without complications (principal); E78.2 Mixed hyperlipidemia ==

== ENCOUNTER → 2019-09-24 | Outpatient (CLI) | payer OTHER ==
--- NOTE | 2019-09-26 13:53 | MAM ---
EXAM DESCRIPTION: 3D Screening BILATERAL : Digital Mammography. CLINICAL HISTORY: 64 years Female SCREEN history sheet. Lifetime risk of developing breast cancer (Tyrer-Cuzick model)(%): Not calculated COMPARISON: . No complaints. No personal or family history of breast cancer. Menarche age 14. No childbirth. Menopause age 47. No HRT. 7.4. TECHNIQUE: Bilateral CC and MLO projection full-field images, digital tomosynthesis mammographic technique. Bilateral digital 2-D full-field MLO images. CAD available for 2-D images. FINDINGS: The breast parenchymal density pattern is: Scattered areas of fibroglandular density. No skin thickening or nipple retraction. Axillary lymph nodes. Solitary microcalcifications. Lymph nodes in the axillary tail on the left. No new focal, stellate mass or density, focal asymmetry , and no suspicious microcalcifications bilaterally. Stable mammograms compared to prior study. IMPRESSION: Benign exam. BIRAD CATEGORY: 2 BENIGN FINDINGS. RECOMMENDATIONS: FOLLOW UP: Routine digital bilateral mammographic screening, one year interval from September 2019. Written communication explaining the IMPRESSION and follow-up, will be mailed to the patient and referring health care provider. According to the [employer], yearly mammograms are recommended starting at age 40 and continuing as long as a woman is in good health. Any breast change noted on a breast self-exam should be reported promptly to the patient's healthcare provider. Breast MRI is recommended for women with an approximately 20-25% or greater lifetime risk of breast cancer, including women with a strong family history of breast or ovarian cancer and women who have been treated for Hodgkin's disease. A negative mammographic report should not delay tissue diagnosis in patients with significant clinical history or physical findings. Extremely dense breast tissue limits the sensitivity of digital mammography. Electronically signed by: Solomon Matthews MD 09/26/2019 1:52 PM [facility]
== END ==
LOC: MAMMO 08:00
PROVIDERS: ATTEND Family Medicine
DX: Z12.31 Encounter for screening mammogram for malignant neoplasm of breast (principal)

== ENCOUNTER 2020-08-29 10:21 | Emergency (ER) | payer OTHER ==
--- NOTE | 2020-08-29 10:31 | ED.PDOC ---
History of Present Illness - General Time Seen by Provider: 08/29/20 10:23 Source: patient, RN notes reviewed, Vital Signs reviewed, family Exam Limitations: no limitations - History of Present Illness Initial Comments: 65 yo F pressents with malaise. diagnosed with covid. Denies Chest pain, shortness of breath, n/v/d. no cough, no sore throat, no fever. Allergies/Adverse Reactions: Allergies Morphine Allergy (Verified 08/29/20 10:49) Home Medications: Ambulatory Orders Gabapentin 300 mg PO TID 05/28/18 Glyburide 5 mg PO BID 05/28/18 Lisinopril 40 mg PO DAILY 05/28/18 Lovastatin 20 mg PO BEDTIME 05/28/18 Metformin HCl [Metformin Hydrochloride] 1,000 mg PO BID 05/28/18 Diclofenac Sodium [Voltaren] 75 mg PO BID 09/21/18 Cyclobenzaprine HCl [Flexeril] 10 mg PO Q8H PRN #30 tab 09/29/18 Rivaroxaban [Xarelto] 10 mg PO DAILY #9 tab 09/29/18 Review of Systems - Review of Systems Constitutional: States: malaise. Denies: chills, fever EENTM: Denies: blurred vision, throat pain Respiratory: Denies: cough, short of breath Cardiology: Denies: chest pain Gastrointestinal/Abdominal: Denies: abdominal pain, diarrhea, nausea, vomiting Musculoskeletal: Denies: back pain, joint swelling Skin: Denies: change in color, rash Neurological: Denies: headache, numbness Endocrine: Denies: unexplained weight gain, unexplained weight loss Hematologic/Lymphatic: Denies: blood clots, easy bleeding, easy bruising Past Medical History (General) - Patient Medical History Hx Seizures: No Hx Stroke: No Hx Asthma: No Hx of COPD: No Hx Congestive Heart Failure: No Hx Pacemaker: No Hx Hypertension: Yes Hx Diabetes: Yes Hx MRSA: No - Social History Hx Alcohol Use: No Hx Substance Use: No Hx Physical Abuse: No Hx Emotional Abuse: No Family Medical History - Family History Mother Family History: Unknown Physical Exam - Physical Exam General Appearance: Alert, Comfortable, No apparent distress, Well Developed, Well Groomed, Well Hydrated, Well Nourished Eye Exam: bilateral normal Ears, Nose, Throat: hearing grossly normal, normal ENT inspection, normal pharynx Neck: non-tender, full range of motion, supple, normal inspection Respiratory: chest non-tender, lungs clear, normal breath sounds, no respiratory distress, no accessory muscle use Cardiovascular/Chest: normal peripheral pulses, regular rate, rhythm, no edema, no gallop Gastrointestinal/Abdominal: soft Rectal Exam: deferred Back Exam: normal inspection Extremity: normal inspection Neurologic: no motor/sensory deficits, alert, normal mood/affect Skin Exam: normal color, warm/dry Progress - Progress Progress: 08/29/20 10:31 patient has had previous nasal surgery, thus cannot have the deep nasal swab. will order rapid test. 08/29/20 11:02 The data reviewed when caring for this patient included: nurse notes, prior records, etc. The history and assessments from nurses notes were reviewed and considered, and the patient's home medication list was also reviewed and considered. My assessment and the results of testing completed here in the ED were discussed with the patient/family. All questions were answered, and they express understanding of my assessment and the plan. They have been instructed to return if their symptoms worsen, and have been asked to follow up with their primary care physician to recheck today's presenting complaint. Strict return precautions given. I have reviewed medication, benefits, alternatives and side effects. Patient decided to proceed with medication. Julienne Gonzalez DO #[id number] Departure - Departure Clinical Impression: COVID-19 Time of Disposition: 11:01 Disposition: Discharge to Home or Self Care Instructions: Preventing the Spread of an Infectious Disease, Coronavirus Disease 2019 (COVID-19) (DC) Diet: resume usual diet Activity: increase activity as tolerated Referrals: Grant Lowry MD [Primary Care Provider] - 1 Week Home Medications: Ambulatory Orders Gabapentin 300 mg PO TID 05/28/18 Glyburide 5 mg PO BID 05/28/18 Lisinopril 40 mg PO DAILY 05/28/18 Lovastatin 20 mg PO BEDTIME 05/28/18 Metformin HCl [Metformin Hydrochloride] 1,000 mg PO BID 05/28/18 Diclofenac Sodium [Voltaren] 75 mg PO BID 09/21/18 Cyclobenzaprine HCl [Flexeril] 10 mg PO Q8H PRN #30 tab 09/29/18 Rivaroxaban [Xarelto] 10 mg PO DAILY #9 tab 09/29/18
[2020-08-29 14:04] VITALS: TEMP 97; O2SAT 98
[2020-08-29 14:05] VITALS: BP 148/90
== END 2020-08-29 12:45 | disposition home or self-care (01) ==
LOC: ER 10:21
DX: U07.1 COVID-19 (principal); I10 Essential (primary) hypertension; E11.9 Type 2 diabetes mellitus without complications; Z79.84 Long term (current) use of oral hypoglycemic drugs; Z79.899 Other long term (current) drug therapy; Z88.5 Allergy status to narcotic agent

== ENCOUNTER → 2020-09-14 | Outpatient (CLI) | payer OTHER | LOC: YCFC.O 09:54 | PROVIDERS: ATTEND Family Medicine | DX: E11.9 Type 2 diabetes mellitus without complications (principal); I10 Essential (primary) hypertension; E78.5 Hyperlipidemia, unspecified; R53.83 Other fatigue ==